=== PATIENT | male | born 1960 | race Caucasian/White ===

== ENCOUNTER 2016-03-06 06:54 | Day surgery (SDC) | payer BC, OTHER ==
[2016-03-04 09:16] VITALS: BMI 33.2
[2016-03-06] MEDS ORDERED: LIDOCAINE 1% P/F 10 MG/ML VIAL ONE ×2 (07:30→07:33)
[2016-03-06] MEDS ORDERED: CARBACHOL 0.01% INTRA-OCULAR 1.5 ML VIAL ONE ×2 (07:30→07:33)
[2016-03-06] MEDS ORDERED: BSS (NA/CA/MG/K) BALANCED SALT SOLUTION OPHTH SOLN 15 ML BOTTLE ONE ×2 (07:30→07:33)
[2016-03-06] MEDS: TROPICAMIDE 1% OPHTH SOLN 15 ML BOTTLE ONE ×3 (07:40→07:50)
[2016-03-06] MEDS: CIPROFLOXACIN 0.3% EYE DROPS 5 ML BOTTLE ONE ×3 (07:40→07:50)
[2016-03-06] MEDS: PHENYLEPHRINE 2.5% OPHTH SOLN 15 ML BOTTLE ONE ×3 (07:40→07:50)
[2016-03-06] MEDS: CYCLOPENTOLATE 2% OPHTH SOLN 2 ML BOTTLE ONE ×3 (07:40→07:50)
[2016-03-06] MEDS ORDERED: MIDAZOLAM HCL 2 MG/2 ML SINGLE DOSE VIAL ONE ×3 (08:34→09:21)
[2016-03-06] MEDS ORDERED: TETRACAINE 0.5% OPHTH SOLN 2 ML BOTTLE ONE (08:59)
[2016-03-06] MEDS ORDERED: ACETYLCHOLINE 1:100 INTRA-OCUL 20 MG/2 ML KIT ONE ×2 (09:11→09:20)
[2016-03-06] MEDS ORDERED: ACETAMINOPHEN 325 MG TABLET (FP) PO PRN (09:39)
[2016-03-06] MEDS ORDERED: ONDANSETRON 4 MG/2 ML VIAL IVPUSH PRN (09:40)
[2016-03-06 09:51] VITALS: TEMP 98
[2016-03-06 10:24] VITALS: BP 143/84; PULSE 59
== END 2016-03-06 10:20 | disposition home or self-care (01) ==
LOC: FASU 06:54
PROVIDERS: ATTEND Ophthalmology
PROC: 08RK3JZ Replacement of Left Lens with Synthetic Substitute, Percutaneous Approach (ICD-10-PCS; principal; 2016-03-06 08:58)
DX: H26.8 Other specified cataract (principal)

== ENCOUNTER 2016-05-15 07:17 | Day surgery (SDC) | payer BC, OTHER ==
[2016-05-13 11:58] VITALS: BMI 33.7
[2016-05-15] MEDS ORDERED: DESFLURANE GAS 240 ML BOTTLE IH ONE (07:19)
[2016-05-15] MEDS ORDERED: LIDOCAINE HCL 1%, 10 MG/ML (20ML VIAL) ONE (07:29)
[2016-05-15] MEDS ORDERED: BUPIVACAINE HCL/PF 0.5% (5MG/ML) 10 ML VIAL ONE (07:30)
[2016-05-15] MEDS ORDERED: SODIUM CHLORIDE 0.9% P/F 10 ML VIAL IJ ONE (08:30)
[2016-05-15] MEDS ORDERED: DEXAMETHASONE SOD PHOSPHATE 4 MG/1 ML VIAL ONE (08:30)
[2016-05-15] MEDS ORDERED: KETOROLAC TROMETHAMINE 30 MG/1 ML VIAL ONE (08:30)
[2016-05-15] MEDS ORDERED: ceFAZolin SODIUM 1 GM VIAL ONE (08:30)
[2016-05-15] MEDS ORDERED: MIDAZOLAM HCL 2 MG/2 ML SINGLE DOSE VIAL ONE (08:31)
[2016-05-15] MEDS ORDERED: ePHEDrine SULFATE 50 MG/1 ML AMPULE ONE (08:31)
[2016-05-15] MEDS ORDERED: oxyCODONE HCL 5 MG TABLET PO PRN (08:54)
[2016-05-15] MEDS ORDERED: ONDANSETRON 4 MG/2 ML VIAL IVPUSH PRN (08:54)
[2016-05-15] MEDS ORDERED: LACTATED RINGERS SOLUTION 1,000 ML IV SCH (09:00)
--- NOTE | 2016-05-15 09:14 | HP ---
Satellite [facility] - Chief Complaint Chief Complaint: left wrist pain History of Present Illness: left wrist Dequervain's History Source: Patient Limitations to Obtaining History: No Limitations - Past Medical History Allergies/Adverse Reactions: Allergies Allergy/AdvReac Type Severity Reaction Status Date / Time No Known Allergies Allergy Verified 05/15/16 07:53 - Current Medications Current Medications: Home Medications Medication Instructions Recorded Brimonidine Tartrate [Alphagan 1 drop OS BID 08/09/15 0.15% -] Dorzolamide HCl/Timolol Maleat 10 ml OP BID 02/12/16 [Cosopt Eye Drops] Latanoprost 0.005% Eye Drops 1 drop OP HS 02/12/16 [Xalatan 0.005% Eye Drops -] Satellite Physical Exam - Physical Examination Vital Signs: Vital Signs Period Temp Pulse Resp BP Sys/Vogt Pulse Ox Last 24 Hr 97.4 F 59 20 137/87 100 General Appearance: Well Nourished ENT: Clear Lung: Clear to auscultation Heart: Regular rate & rhythm Breasts: Soft Abdomen: Soft Extremities: No edema Satellite Impression/Plan - Impression/Plan Impression: left wrist Dequervain's Operative Procedure: left wrist Dequervain's release, tendon sheath excision Date to be Performed: 05/15/16
--- NOTE | 2016-05-15 09:18 | OP ---
Operative Note - Note: Operative Date: 05/15/16 Pre-Operative Diagnosis: left Dequervain's Operation: left Dequervain's release, tendon sheath excision Post-Operative Diagnosis: Same as Pre-op Surgeon: Bashir Loaiza Anesthesiologist/PUBLIC HE[facility]: Antonio Carlson Anesthesia: General, Local Specimens Removed: tendon sheath Estimated Blood Loss (mls): 0 Blood Volume Replaced (mls): 0 Fluid Volume Replaced (mls): 500 Operative Report Dictated: Yes
[2016-05-15] MEDS ORDERED: ceFAZolin SODIUM 1 GM VIAL IVPB ONE (09:25)
[2016-05-15 11:11] VITALS: TEMP 98.2
[2016-05-15 13:24] VITALS: BP 122/74; PULSE 50
--- NOTE | 2016-05-15 20:06 | SPEC ---
DATE OF SURGERY: 05/15/2016 PREOPERATIVE DIAGNOSIS: Left De Quervains tenosynovitis. POSTOPERATIVE DIAGNOSIS: Left De Quervains tenosynovitis. PROCEDURE: Left De Quervains release and tendon sheath excision. SURGEON: Bashir Berg M.D. SCHOOL SPEECH THERAPIST: John Diaz CRNA, ANESTHESIA: MAC with local injection of 10 mL of 0.5% Marcaine and 1% Lidocaine mix. DRAINS: None. COMPLICATIONS: None. BLOOD LOSS: None. BLOOD GIVEN: None. FLUID REPLACEMENT: 500 mL Plasmalyte. SPECIMEN: Tendon sheath, left wrist. INDICATIONS: This patient is a 55-year-old male with preoperative diagnosis of recurrent severe left De Quervain's tenosynovitis. After understanding the potential risks, complications, alternatives and benefits of surgery versus nonsurgical treatment, the patient elected to undergo this procedure. PROCEDURE: Patient was brought to the operating room, peripheral IV placed, IV sedation given. One gram of IV Ancef was given. MAC anesthesia was induced. The tourniquet was applied to the left arm. The entire care was done under 3.8 loop magnification. The left upper extremity was prepped and draped in a sterile fashion. A longitudinal incision was marked out with a marking pen. A mix of 10 mL of 0.5% Marcaine, 1% Lidocaine were injected in and around the surgical area. The left upper extremity was then elevated, exsanguinated with an Esmarch bandage and the tourniquet inflated to 250 mmHg. A No. 15 scalpel blade was utilized to make a longitudinal incision. Subcutaneous hemostasis was achieved with a bipolar cautery. Dissection was done with a Littler scissors down to the first dorsal wrist compartment. Great care was taken to directly visualize and preserve all crossing sensory branches of the sensory nerve. Under direct visualization, the first dorsal wrist compartment was visualized and it was freed up from some adhesions with a [place] elevator. Next, a fresh No. 15 scalpel blade was utilized to open up the first dorsal wrist compartment, starting proximally and going distally both with the No. 15 scalpel blade and also with a Littler scissors. The anatomy was seen to have multiple slips of the abductor pollicis longus and the extensor pollicis brevis was in its own tendon tunnel. This was also released and the wall between the two excised. The roof of the tunnel was excised. This was all passed off the field as specimen. The volar lip of the first dorsal wrist compartment was preserved to prevent volar subluxation. The release was completed both distally and proximally in both compartments. I was able to bring out all slips through the wound with a Ragnell retractor and there were no obvious points of compression. The area was copiously irrigated and washed out, again explored and I didn't see any other abnormal tissue and therefore closure was begun. Undyed 4-0 Vicryl was used to close the deep dermal layer. Final skin reapproximation was done with a running subcuticular 4-0 Biosyn stitch. The area was then washed and dried, covered with Steri-Strips, 4 x 4's, fluffs between the fingers, Webril and Coban used to make a thumb spica Coban splint. The tourniquet was taken down after a total tourniquet time of 18 minutes. There were no complications during the case. The patient tolerated the procedure quite well and was brought to ambulatory recovery room in stable condition. BASHIR BERG M.D. [id number]
--- NOTE | 2016-05-16 14:28 | PATH ---
Surgical Pathology Report Patient Name: SARAH CANO [facility]. Rec. #: [id number] /Age/Gender: 1960 (Age: 55) / M Account: [id number] Location: [facility] SUR[facility] Taken: 05/15/2016 Received: 05/15/2016 Reported: 05/16/2016 Physicians: Bashir Loaiza M.D. Specimen(s) Received TENDON SHEATH TISSUE LEFT WRIST Clinical History DeQuervain's tenosynovitis left wrist Final Diagnosis SOFT TISSUE, TENDON SHEATH LEFT WRIST, DEQUERVAIN'S RELEASE: BENIGN TENOSYNOVIAL FIBROCONNECTIVE TISSUE WITH FOCAL MYXOID CHANGE AND FOCAL FIBROSIS. Electronically Signed Robert Romero M.D. Gross Description Received in formalin labeled "tendon sheath left wrist" is a 0.7 x 0.7 x 0.2 cm aggregate of beckett-yellow soft tissue fragments. The specimen is submitted in toto in one cassette. /05/15/201605/15/2016
== END 2016-05-15 13:26 | disposition home or self-care (01) ==
LOC: JASU-SURG 07:17
PROVIDERS: ATTEND Orthopaedic Surgery
PROC: 0L860ZZ Division of Left Lower Arm and Wrist Tendon, Open Approach (ICD-10-PCS; principal; 2016-05-15 08:45)
DX: M65.4 Radial styloid tenosynovitis [de Quervain] (principal)
CPT/HCPCS: 88304-TC; 94760

== ENCOUNTER 2017-10-04 13:45 | Emergency (ER) | payer BC ==
[2017-10-04 14:00] VITALS: BP 143/61; PULSE 73; TEMP 98.8; BMI 32.5
[2017-10-04] MEDS ORDERED: TETANUS AND DIPHTHERIA TOXOID 0.5 ML DISP.SYRIN IM ONE (14:10)
[2017-10-04] MEDS ORDERED: AMOX TR/POT CLAV 875MG/125MG TABLETS (FP) PO ONE (14:10)
--- NOTE | 2017-10-04 14:16 | PDOC ---
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 Pt is RH dominant. Pit Bull mix dog, private pet, regular veterinary care. Past History - Past Medical History Allergies/Adverse Reactions: Allergies Allergy/AdvReac Type Severity Reaction Status Date / Time No Known Allergies Allergy Verified 10/04/17 13:46 Home Medications: Ambulatory Orders Brimonidine Tartrate [Alphagan 0.15% -] 1 drop OS BID 08/09/15 Dorzolamide HCl/Timolol Maleat [Cosopt Eye Drops] 10 ml OP BID 02/12/16 Latanoprost 0.005% Eye Drops [Xalatan 0.005% Eye Drops -] 1 drop OP HS 02/12/16 Amoxicillin/Potassium Clav [Augmentin 875-125 Tablet] 1 each PO BID 10 Days #20 tablet 10/04/17 Anemia: No Asthma: No Cancer: No Cardiac Disorders: No CVA: No COPD: No CHF: No Dementia: No Diabetes: No GI Disorders: No Disorders: No HTN: No Hypercholesterolemia: No Liver Disease: No Seizures: No Thyroid Disease: No - Surgical History Abdominal Surgery: No Appendectomy: No Cardiac Surgery: No Cholecystectomy: No Lung Surgery: No Neurologic Surgery: No Orthopedic Surgery: Yes (Bilateral Knee Arthroscopy) - Immunization History Td Vaccination: Yes Immunization Up to Date: Yes - Suicide/Smoking/Psychosocial Hx Smoking Status: Yes Smoking History: Never smoked Have you smoked in the past 12 months: No Number of Cigarettes Smoked Daily: 0 If you are a former smoker, when did you quit?: 2011 Information on smoking cessation initiated: No Hx Alcohol Use: No Drug/Substance Use Hx: No Substance Use Type: Alcohol Hx Substance Use Treatment: No *Physical Exam - Vital Signs Last Vital Signs Temp Pulse Resp BP Pulse Ox 98.8 F 73 20 143/61 100 10/04/17 13:46 10/04/17 13:46 10/04/17 13:46 10/04/17 13:46 10/04/17 13:46 - Physical Exam Comments: 10/04/17 15:35 NAD R index finger w/ lateral surface 1cm laceration no other lacerations. hemostatic at time of presentation. distal cap refill intact, FROM of digit flex/ext, sensation intact. ED Treatment Course - RADIOLOGY Radiology Studies Ordered: Category Date Time Status FINGER(S) RIGHT [RAD] Stat Radiology 10/04/17 14:09 Ordered Medical Decision Making - Medical Decision Making 10/04/17 15:34 washout complete. no FB on xray dressing applied, referral to hand surgery for f/u. 10/04/17 15:36 57yoM w/ dog bite to finger. RH dominant. tetanus ppx augmentin ppx washout and bandage applied discusseed wound care w/ pt and return to ED precautions. *DC/Admit/Observation/Transfer Diagnosis at time of Disposition: Dog bite - Discharge Dispostion Disposition: HOME Condition at time of disposition: Stable - Prescriptions Prescriptions: Amoxicillin/Potassium Clav [Augmentin 875-125 Tablet] 1 each PO BID 10 Days #20 tablet - Referrals Referrals: Jorge A Clement MD [Staff Physician] - - Patient Instructions Printed Discharge Instructions: DI for Animal Bites Additional Instructions: Please call Dr. Clement on friday to arrange an appointment for this week. You were given a tetanus shot today. Augmentin antibiotic for 10 days to prevent infection. Tylenol and/or ibuprofen as needed for pain. Keep hand elevated at or above the level of the heart as much as possible. Return for wound check on FRIDAY. Return to ED sooner for: increased redness/swelling to finger/hand, redness streaking up hand/arm. pus from wound fever over 100.4 - Post Discharge Activity Forms/Work/School Notes: Back to Work
[2017-10-04] MEDS ORDERED: AMOX TR/POT CLAV 875MG/125MG TABLETS (FP) ONE (14:21)
[2017-10-04] MEDS ORDERED: DIPHTH,PERTUSS(ACELL),TET 0.5 ML DISP.SYRIN IM ONE (14:23)
--- NOTE | 2017-10-06 10:30 | PDOC ---
*Physical Exam - Vital Signs Last Vital Signs Temp Pulse Resp BP Pulse Ox 98.8 F 73 20 143/61 100 10/04/17 13:46 10/04/17 13:46 10/04/17 13:46 10/04/17 13:46 10/04/17 13:46 - Physical Exam Comments: 10/06/17 10:28 Gen: Well appearing, no acute distress R INDEX FINGER: 1cm healing laceration without erythema. Minimally swollen, full range of point, nontender. No discharge <Eliazar Jo - Last Filed: 10/06/17 10:27> - Vital Signs Last Vital Signs Temp Pulse Resp BP Pulse Ox 98.8 F 73 20 143/61 100 10/04/17 13:46 10/04/17 13:46 10/04/17 13:46 10/04/17 13:46 10/04/17 13:46 <Trung Bernard - Last Filed: 10/06/17 10:40> ED Treatment Course - Medications Given in the ED: ED Medications Discontinued Medications Generic Name Dose Route Start Last Admin Trade Name Freq PRN Reason Stop Dose Admin Amoxicillin/Clavulanate Potassium 1 tab 10/04/17 14:10 10/04/17 14:22 Augmentin - 875mg Tablet PO 10/04/17 14:11 1 tab ONCE ONE Administration Diphtheria/Tetanus/Acell Pertussis 0.5 ml 10/04/17 14:23 10/04/17 14:24 Boostrix - IM 10/04/17 14:24 0.5 ml .ONCE ONE Administration <Eliazar Jo - Last Filed: 10/06/17 10:27> - Medications Given in the ED: ED Medications Discontinued Medications Generic Name Dose Route Start Last Admin Trade Name Freq PRN Reason Stop Dose Admin Amoxicillin/Clavulanate Potassium 1 tab 10/04/17 14:10 10/04/17 14:22 Augmentin - 875mg Tablet PO 10/04/17 14:11 1 tab ONCE ONE Administration Diphtheria/Tetanus/Acell Pertussis 0.5 ml 10/04/17 14:23 10/04/17 14:24 Boostrix - IM 10/04/17 14:24 0.5 ml .ONCE ONE Administration <Trung Bernard - Last Filed: 10/06/17 10:40> Medical Decision Making - Medical Decision Making 10/06/17 10:29 Patient is 57M here today for a wound check after being bit by a dog two days ago. Healing well, taking antibiotics. Given return precautions. <Eliazar Jo - Last Filed: 10/06/17 10:27> - Medical Decision Making 10/06/17 10:40 Patient presents for follow-up no evidence of infected finger. Recommend continuing antibiotics continuing bacitracin strict infection return instructions discussed with patient. On physical exam full range of motion neurovascularly intact. <Trung Bernard - Last Filed: 10/06/17 10:40> *DC/Admit/Observation/Transfer <Eliazar Jo - Last Filed: 10/06/17 10:27> <Marco AntonioTrung - Last Filed: 10/06/17 10:40> Diagnosis at time of Disposition: Dog bite - Discharge Dispostion Disposition: HOME Condition at time of disposition: Stable - Prescriptions Prescriptions: Amoxicillin/Potassium Clav [Augmentin 875-125 Tablet] 1 each PO BID 10 Days #20 tablet - Referrals Referrals: Jorge A Clement MD [Staff Physician] - - Patient Instructions Printed Discharge Instructions: DI for Animal Bites Additional Instructions: Please call Dr. Clement on friday to arrange an appointment for this week. You were given a tetanus shot today. Augmentin antibiotic for 10 days to prevent infection. Tylenol and/or ibuprofen as needed for pain. Keep hand elevated at or above the level of the heart as much as possible. Return for wound check on FRIDAY. Return to ED sooner for: increased redness/swelling to finger/hand, redness streaking up hand/arm. pus from wound fever over 100.4 - Post Discharge Activity Forms/Work/School Notes: Back to Work
== END 2017-10-04 15:52 | disposition home or self-care (01) ==
LOC: FER 13:45
PROC: 3E0234Z Introduction of Serum, Toxoid and Vaccine into Muscle, Percutaneous Approach (ICD-10-PCS; principal; 2017-10-04)
DX: S61.250A Open bite of right index finger without damage to nail, initial encounter (principal); W54.0XXA Bitten by dog, initial encounter; Y93.89 Activity, other specified; Y92.89 Other specified places as the place of occurrence of the external cause; Y99.0 Civilian activity done for income or pay; Z87.891 Personal history of nicotine dependence
CPT/HCPCS: 73140-TC-RT-FY; 90715; 99281-25

== ENCOUNTER 2017-11-09 14:05 | Emergency (ER) | payer BC ==
[2017-11-09] MEDS ORDERED: methylPREDNISolone NA SUCC 125 MG/2 ML VIAL IVPUSH ONE (14:15)
[2017-11-09] MEDS ORDERED: methylPREDNISolone NA SUCC 125 MG/2 ML VIAL ONE (14:20)
--- NOTE | 2017-11-09 14:21 | PDOC ---
History of Present Illness - General Chief Complaint: Allergic Reaction Stated Complaint: SWOLLEN LIP Time Seen by Provider: 11/09/17 14:09 History Source: Patient Exam Limitations: No Limitations - History of Present Illness Initial Comments: 57 yo M presents with L upper lip swelling after a bee sting. He states he has no known history of any allergies, never had a reaction to a sting before. Today he was eating a sandwich outside, suddenly felt a sharp pain, a family member saw a bee that stung his face. He took 25 mg of benadryl at the time, that was approximately an hour ago. A friend who was with him was concerned that it swelled up a bit more despite the benadryl, so he came for evaluation. Denies SOB, itching, swelling in throat. Past History - Past Medical History Allergies/Adverse Reactions: Allergies Allergy/AdvReac Type Severity Reaction Status Date / Time bee venom protein (honey bee) Allergy Verified 11/09/17 14:08 Home Medications: Ambulatory Orders Brimonidine Tartrate [Alphagan 0.15% -] 1 drop OS BID 08/09/15 Dorzolamide HCl/Timolol Maleat [Cosopt Eye Drops] 10 ml OS BID 02/12/16 Latanoprost 0.005% Eye Drops [Xalatan 0.005% Eye Drops -] 1 drop OP HS 02/12/16 Diphenhydramine HCl [Benadryl -] 25 mg PO ONCE 11/09/17 Epinephrine [Epipen] 0.3 mg IJ ASDIR #1 auto.injct 11/09/17 predniSONE [Deltasone -] 40 mg PO DAILY #4 tablet 11/09/17 Anemia: No Asthma: No Cancer: No Cardiac Disorders: No CVA: No COPD: No CHF: No Dementia: No Diabetes: No GI Disorders: No Disorders: No HTN: No Hypercholesterolemia: No Liver Disease: No Seizures: No Thyroid Disease: No Other medical history: GLAUCOMA, ARTHRITIS - Surgical History Abdominal Surgery: No Appendectomy: No Cardiac Surgery: No Cholecystectomy: No Lung Surgery: No Neurologic Surgery: No Orthopedic Surgery: Yes (Bilateral Knee Arthroscopy) - Immunization History Td Vaccination: Yes Immunization Up to Date: Yes - Suicide/Smoking/Psychosocial Hx Smoking Status: Yes Smoking History: Never smoked Have you smoked in the past 12 months: No Number of Cigarettes Smoked Daily: 0 If you are a former smoker, when did you quit?: 2011 Information on smoking cessation initiated: No Hx Alcohol Use: (social) Drug/Substance Use Hx: No Substance Use Type: Alcohol Hx Substance Use Treatment: No Review of Systems - Review of Systems Able to Perform ROS?: Yes Comments:: GENERAL/CONSTITUTIONAL: No fever or chills. No weakness. HEAD, EYES, EARS, NOSE AND THROAT: No change in vision. No ear pain or discharge. No sore throat. +Swollen L upper lip CARDIOVASCULAR: No chest pain or shortness of breath. RESPIRATORY: No cough, wheezing, or hemoptysis. GASTROINTESTINAL: No nausea, vomiting, diarrhea or constipation. GENITOURINARY: No dysuria, frequency, or change in urination. MUSCULOSKELETAL: No joint or muscle swelling or pain. No neck or back pain. SKIN: No rash NEUROLOGIC: No headache, vertigo, loss of consciousness, or change in strength/ sensation. ENDOCRINE: No increased thirst. No abnormal weight change. HEMATOLOGIC/LYMPHATIC: No anemia, easy bleeding, or history of blood clots. ALLERGIC/IMMUNOLOGIC: No hives or skin allergy. *Physical Exam - Vital Signs Last Vital Signs Temp Pulse Resp BP Pulse Ox 98.1 F 58 L 18 150/89 98 11/09/17 14:05 11/09/17 14:05 11/09/17 14:05 11/09/17 14:05 11/09/17 14:05 - Physical Exam Comments: GENERAL: Awake, alert, and fully oriented, in no acute distress HEAD: No signs of trauma EYES: PERRLA, EOMI, sclera anicteric, conjunctiva clear ENT: Auricles normal inspection, hearing grossly normal, nares patent, oropharynx clear without exudates. Moist mucosa. +Small puncture lenny just above the upper lip on the L side, with surrounding edema. No erythema. Oropharynx is patent, normal phonation. NECK: Normal ROM, supple, no lymphadenopathy, JVD, or masses LUNGS: Breath sounds equal, clear to auscultation bilaterally. No wheezes, and no crackles HEART: Regular rate and rhythm, normal S1 and S2, no murmurs, rubs or gallops ABDOMEN: Soft, nontender, normoactive bowel sounds. No guarding, no rebound. No masses EXTREMITIES: Normal range of motion, no edema. No clubbing or cyanosis. No cords, erythema, or tenderness NEUROLOGICAL: Cranial nerves II through XII grossly intact. Normal speech, normal gait SKIN: Warm, Dry, normal turgor, no rashes or lesions noted. Medical Decision Making - Medical Decision Making 11/09/17 15:38 Pt improved significantly after receiving solu-medrol and pepcid. Will continue to monitor in ED. Also, received a call from patient's pharmacy that all area pharmacies have shortage of epi-pens with 4 month waiting list (there has been a national shortage of multiple drugs, epi-pen included). He has been placed on waiting list. I explained to patient's that if he ever has a sting to the face or neck and any symptoms in his throat, he will have to call 911 immediately. *DC/Admit/Observation/Transfer Diagnosis at time of Disposition: Bee sting allergy - Discharge Dispostion Disposition: HOME Condition at time of disposition: Stable Decision to Admit order: No - Prescriptions Prescriptions: Epinephrine [Epipen] 0.3 mg IJ ASDIR #1 auto.injct predniSONE [Deltasone -] 40 mg PO DAILY #4 tablet - Referrals Referrals: Gayathri Coughlin MD [Primary Care Provider] - - Patient Instructions Printed Discharge Instructions: DI for Insect Bites and Stings, DI for General Allergic Reactions - Post Discharge Activity
[2017-11-09 15:22] VITALS: TEMP 98.1; BMI 33.2
[2017-11-09] MEDS ORDERED: FAMOTIDINE 20 MG/50 ML IVPB 20 MG/50 ML MG IVPB ONE (16:15)
[2017-11-09 17:07] VITALS: BP 118/76; PULSE 77
== END 2017-11-09 17:10 | disposition home or self-care (01) ==
LOC: FER 14:05
PROC: 3E033GC Introduction of Other Therapeutic Substance into Peripheral Vein, Percutaneous Approach (ICD-10-PCS; principal; 2017-11-09)
DX: T63.441A Toxic effect of venom of bees, accidental (unintentional), initial encounter (principal); Y92.89 Other specified places as the place of occurrence of the external cause; Y93.9 Activity, unspecified; Z87.891 Personal history of nicotine dependence
CPT/HCPCS: 99284-25

== ENCOUNTER 2021-04-18 08:02 | Day surgery (SDC) | payer BC ==
[2021-04-17 12:40] VITALS: BMI 30.5
[2021-04-18] MEDS ORDERED: LIDOCAINE HCL/PF 2% SDV 5ML VIAL ONE (08:19)
[2021-04-18] MEDS ORDERED: PROPOFOL 20 ML ONE ×3 (08:19)
[2021-04-18 09:47] VITALS: BP 121/81; PULSE 78; TEMP 98
== END 2021-04-18 10:05 | disposition home or self-care (01) ==
LOC: FASU-ENDO 08:02
PROVIDERS: ATTEND Internal Medicine Gastroenterology
PROC: 0DBN8ZX Excision of Sigmoid Colon, Via Natural or Artificial Opening Endoscopic, Diagnostic (ICD-10-PCS; 2021-04-18)
PROC: 0DBP8ZX Excision of Rectum, Via Natural or Artificial Opening Endoscopic, Diagnostic (ICD-10-PCS; principal; 2021-04-18 08:45)
DX: Z12.11 Encounter for screening for malignant neoplasm of colon (principal); Z80.0 Family history of malignant neoplasm of digestive organs; D12.5 Benign neoplasm of sigmoid colon; K62.1 Rectal polyp
CPT/HCPCS: 88305-TC

== ENCOUNTER 2021-09-02 10:38 | Emergency (ER) | payer BC ==
[2021-09-02] MEDS ORDERED: SODIUM CHLORIDE 1,000 ML IV STA (10:59)
[2021-09-02] MEDS ORDERED: KETOROLAC TROMETHAMINE 30 MG/1 ML VIAL IVPUSH ONE (10:59)
[2021-09-02 11:01] VITALS: TEMP 98.4; BMI 34.5
[2021-09-02 11:09] LABS: EPITHELIAL CELLS RARE /hpf
[2021-09-02] MEDS ORDERED: ONDANSETRON 4 MG/2 ML VIAL IVPB ONE (11:13)
[2021-09-02] MEDS ORDERED: ONDANSETRON 4 MG/2 ML VIAL ONE (11:15)
[2021-09-02] MEDS ORDERED: KETOROLAC TROMETHAMINE 15 MG/ML VIAL ONE (11:15)
[2021-09-02 11:24] LABS: HEMATOCRIT 42.8 % (35.4-49); HEMOGLOBIN 15.4 G/dL (11.7-16.9); MCH 31.9 pg (25.7-33.7); MEAN CELL VOLUME 88.6 fl (80-96); MEAN PLT VOLUME 8.7 fl (7.5-11.1); PLATELET COUNT 254.8 10^3/uL (134-434); RBC 4.83 10^6/uL (4.00-5.60); RDW 13.6 % (11.9-15.9); WHITE BLOOD COUNT 8.9 10^3/uL (4.0-10.8)
[2021-09-02 11:52] LABS: ALBUMIN 4.1 g/dl (3.4-5.0); BILIRUBIN,TOTAL 1.1 mg/dl (0.2-1); CALCIUM 9.3 mg/dl (8.5-10); CREATININE 1.2 mg/dl (0.55-1.3); TOT PROT 7.1 g/dl (6.4-8.2)
[2021-09-02 12:40] LABS: PLATELET ESTIMATE ADEQUATE
[2021-09-02 13:19] VITALS: BP 156/87; PULSE 58
== END 2021-09-02 13:30 | disposition home or self-care (01) ==
LOC: FER 10:38
PROC: 3E0333Z Introduction of Anti-inflammatory into Peripheral Vein, Percutaneous Approach (ICD-10-PCS; principal; 2021-09-02)
PROC: 3E033GC Introduction of Other Therapeutic Substance into Peripheral Vein, Percutaneous Approach (ICD-10-PCS; 2021-09-02)
PROC: 3E0337Z Introduction of Electrolytic and Water Balance Substance into Peripheral Vein, Percutaneous Approach (ICD-10-PCS; 2021-09-02)
DX: N23 Unspecified renal colic (principal)
CPT/HCPCS: 36415; 74176-TC; 80053; 81003; 81015; 85027; 87086; 99284-25

== ENCOUNTER 2022-09-04 06:53 | Day surgery (SDC) | payer BC ==
[2022-08-29 16:51] VITALS: BMI 35.9
[2022-09-04] MEDS ORDERED: TETRACAINE 0.5% OPHTH SOLN 2 ML BOTTLE ONE (07:23)
[2022-09-04] MEDS ORDERED: BSS (NA/CA/MG/K) BALANCED SALT SOLUTION OPHTH SOLN 15 ML BOTTLE ONE (07:23)
[2022-09-04] MEDS ORDERED: NEO/POLYMYX B SULF/DEXAMETH OPHTHALMIC 5ML BOTTLE ONE (07:23)
[2022-09-04] MEDS ORDERED: LIDOCAINE 1% P/F 10 MG/ML VIAL ONE (07:23)
[2022-09-04] MEDS ORDERED: CARBACHOL 0.01% INTRA-OCULAR 1.5 ML VIAL ONE (07:23)
[2022-09-04] MEDS: TROPICAMIDE 1% OPHTH SOLN 15 ML BOTTLE ONE ×3 (07:25→07:35)
[2022-09-04] MEDS: CYCLOPENTOLATE 2% OPHTH SOLN 2 ML BOTTLE ONE ×3 (07:25→07:35)
[2022-09-04] MEDS: PHENYLEPHRINE 2.5% OPTHALMIC DROP 2ML BOTTLE ONE ×3 (07:25→07:35)
[2022-09-04] MEDS: CIPROFLOXACIN 0.3% EYE DROPS 5 ML BOTTLE ONE ×3 (07:25→07:35)
[2022-09-04] MEDS ORDERED: MIDAZOLAM HCL 2 MG/2 ML SINGLE DOSE VIAL ONE ×2 (09:07→09:12)
[2022-09-04 09:37] VITALS: RESP 18; TEMP 97.2
[2022-09-04 09:51] VITALS: BP 120/74; PULSE 56
== END 2022-09-04 10:00 | disposition home or self-care (01) ==
LOC: FASU 06:53
PROVIDERS: ATTEND Ophthalmology
PROC: 08RJ3JZ Replacement of Right Lens with Synthetic Substitute, Percutaneous Approach (ICD-10-PCS; principal; 2022-09-04 09:12)
DX: H26.8 Other specified cataract (principal)
CPT/HCPCS: 66984; V2632